=== PATIENT | male | born 1980 | race Caucasian/White ===

== ENCOUNTER 2017-07-22 18:55 | Emergency (ER) | payer OTHER ==
--- NOTE | 2017-07-22 21:14 | ED Physician Documentation ---
PD HPI CHEST PAIN - Stated complaint Stated Complaint: CHEST TIGHTNESS - Chief complaint Chief Complaint: Cardiac - History obtained from History obtained from: Patient - History of Present Illness Timing - onset: Other (36-year-old gentleman with history of anxiety, no other health problems was sitting at work tonight and he felt tachycardic and breathless, now better. He has had episodes like this related to anxiety in the past. There is no associated chest pain, no pedal edema, calf pain, recent travel or cough. No heavy caffeine use. He noted on his Fitbit that he was tachycardic to 120.) Review of Systems Ten Systems: 10 systems reviewed and negative Constitutional: denies: Fever, Chills, Fatigue Throat: denies: Dental pain / toothache, Sore throat Cardiac: reports: Palpitations. denies: Chest pain / pressure, Pedal edema, Calf pain PD PAST MEDICAL HISTORY - Past Medical History Past Medical History: Yes Cardiovascular: None Respiratory: None Endocrine/Autoimmune: None GI: None : Other HEENT: None Psych: Anxiety Musculoskeletal: Other Derm: None - Past Surgical History Past Surgical History: Yes - Present Medications Home Medications: Ambulatory Orders Medication Instructions Recorded Confirmed Alprazolam [Xanax] 0.5 mg PO Q6H PRN #10 tablet 07/22/17 Loratadine [Claritin] 10 mg PO 07/22/17 Sertraline [Zoloft] 07/22/17 - Allergies Allergies/Adverse Reactions: Allergies Allergy/AdvReac Type Severity Reaction Status Date / Time No Known Drug Allergies Allergy Verified 07/22/17 19:08 - Social History Does the pt smoke?: No Smoking Status: Never smoker Does the pt drink ETOH?: Yes Does the pt have substance abuse?: No - Immunizations Immunizations are current?: Yes - POLST Patient has POLST: No PD ED PE NORMAL - Vitals Vital signs reviewed: Yes - General General: Alert and oriented X 3, No acute distress - Cardiac Cardiac: RRR, No murmur - Respiratory Respiratory: No respiratory distress, Clear bilaterally - Abdomen Abdomen: Non tender - Extremities Extremities: No edema, No calf tenderness / cord - Neuro Neuro: Alert and oriented X 3, Normal speech Results - Vitals Vitals: Vital Signs - 24 hr 07/22/17 07/22/17 19:00 20:43 Temperature 36.1 C L Heart Rate 94 80 Respiratory 18 14 Rate Blood Pressure 129/92 H 150/92 H O2 Saturation 96 100 Oxygen O2 Source Room air - EKG (time done) 1900 Rate: Rate (enter#) (100) Rhythm: Sinus tachycardia [place]: Normal Intervals: Normal [place] QRS: Normal Ischemia: Normal ST segments Computer interpretation: Agree with computer PD MEDICAL DECISION MAKING - ED course ED course: 36-year-old gentleman with most likely resolved panic attack, supraventricular tachycardia or A. fib was considered but less likely but follow-up with potential Holter monitoring was advised. Departure - Departure Disposition: Home, Self Care Clinical Impression: Tachycardia Condition: Good Record reviewed to determine appropriate education?: Yes Instructions: ED Chest Pain Atypical Unkn Cause Prescriptions: Alprazolam [Xanax] 0.5 mg PO Q6H PRN #10 tablet PRN Reason: Anxiety Comments: Talk with your doctor about increasing your antidepressants. Also consider Holter monitoring for persistent symptoms. Your blood pressure was elevated today on check into the emergency department. This does not mean that you have hypertension, it is a common phenomenon to come to the emergency department and have elevated blood pressure. I recommend that you see your primary care physician within the week to have it rechecked when you are feeling better.
[2017-07-22 21:23] VITALS: BP 151/92
== END 2017-07-22 21:24 | disposition home or self-care (01) ==
LOC: ED 18:55
DX: R00.0 Tachycardia, unspecified (principal); R03.0 Elevated blood-pressure reading, without diagnosis of hypertension; F41.9 Anxiety disorder, unspecified
CPT/HCPCS: 93005; 99283

== ENCOUNTER 2017-07-27 12:53 | Emergency (ER) | payer OTHER ==
--- NOTE | 2017-07-27 14:49 | ED Physician Documentation ---
PD HPI CHEST PAIN - Stated complaint Stated Complaint: PANIC ATTACK - Chief complaint Chief Complaint: General - History obtained from History obtained from: Patient - History of Present Illness Timing - onset: How many hours ago (2) Timing - onset during: Light activity Timing - duration: Hours (2) Timing - details: Abrupt onset, Now resolved (feeling improved enroute to ED. Still feeling slightly anxious.) Quality: Pressure (and feeling of heart going fast.). No: Aching, Sharp Location: Substernal Radiation: No: Jaw, Neck, Back, Abdominal, Left upper extremity, Right upper extremity, Other Improved by: No: Rest Worsened by: No: Exertion, Inspiration Associated symptoms: Shortness of air, Palpitations (feeling heart rate going fast.) Similar symptoms before: No diagnosis (has had this happen several times without obvious provokation and lasts minutes to hour or so. Setting appt with PMD.) Recently seen: Not recently seen Review of Systems Constitutional: denies: Fever, Chills Nose: denies: Rhinorrhea / runny nose, Congestion Throat: denies: Sore throat, Swollen tonsils Cardiac: reports: Palpitations. denies: Chest pain / pressure, Pedal edema, Calf pain Respiratory: reports: Dyspnea (with heart rate going fast, episodes.). denies: Cough, Wheezing GI: denies: Abdominal Pain, Nausea, Vomiting, Diarrhea : denies: Dysuria, Frequency Skin: denies: Rash, Lesions Neurologic: denies: Generalized weakness, Focal weakness, Numbness, Near syncope Psychiatric: denies: Depressed Endocrine: denies: Polydypsia, Polyuria, Weight loss PD PAST MEDICAL HISTORY - Past Medical History Cardiovascular: None Respiratory: None Endocrine/Autoimmune: None GI: None : Other HEENT: None Psych: Anxiety Musculoskeletal: Other Derm: None - Past Surgical History Past Surgical History: Yes - Present Medications Home Medications: Ambulatory Orders Medication Instructions Recorded Confirmed Alprazolam [Xanax] 0.5 mg PO Q6H PRN #10 tablet 07/22/17 Loratadine [Claritin] 10 mg PO 07/22/17 Sertraline [Zoloft] 07/22/17 Atenolol 25 mg PO DAILY #10 tablet 07/27/17 Lorazepam [Ativan] 1 mg PO BID PRN #15 tablet 07/27/17 - Allergies Allergies/Adverse Reactions: Allergies Allergy/AdvReac Type Severity Reaction Status Date / Time No Known Drug Allergies Allergy Verified 07/22/17 19:08 - Social History Does the pt smoke?: No Smoking Status: Never smoker Does the pt drink ETOH?: Yes Does the pt have substance abuse?: No - Family History Family history: reports: Non contributory. denies: CAD, Sudden - Immunizations Immunizations are current?: Yes - POLST Patient has POLST: No PD ED PE NORMAL - Vitals Vital signs reviewed: Yes - General General: Alert and oriented X 3, No acute distress, Well developed/nourished - HEENT HEENT: Moist mucous membranes, Pharynx benign - Neck Neck: Supple, no meningeal sign, No adenopathy, Thyroid normal, No JVD, No bruit - Cardiac Cardiac: RRR, No murmur - Respiratory Respiratory: Clear bilaterally - Abdomen Abdomen: Soft, Non tender - Male Male : Deferred - Rectal Rectal: Deferred - Back Back: No CVA TTP - Derm Derm: Normal color, Warm and dry, No rash - Extremities Extremities: No tenderness to palpate, Normal ROM s pain, No edema, No calf tenderness / cord - Neuro Neuro: Alert and oriented X 3, No motor deficit, Normal speech Results - Vitals Vitals: Oxygen O2 Source Room air - EKG (time done) 13:15 Rate: Rate (enter#) (92) Rhythm: NSR [place]: Normal Intervals: Normal [place] QRS: Normal Ischemia: Normal ST segments. No: ST elevation c/w ischemia, ST depression Compare to prior EKG: Old EKG unavailable - Labs Labs: Laboratory Tests 07/27/17 07/27/17 07/27/17 15:27 15:27 15:27 WBC 6.9 RBC 4.93 Hgb 13.7 L Hct 42.2 MCV 85.6 MCH 27.9 MCHC 32.6 RDW 13.9 Plt Count 295 MPV 7.1 L Neut # 3.7 Lymph # 2.3 [place] # 0.6 Eos # 0.2 Baso # 0.1 Absolute Nucleated RBC 0.00 Nucleated RBC % 0.0 Sodium 135 Potassium 3.9 Chloride 102 Carbon Dioxide 24 Anion Gap 9.0 BUN 18 Creatinine 0.8 Estimated GFR (MDRD) 109 Glucose 85 Calcium 9.1 Magnesium 2.2 Total Bilirubin 0.3 AST 29 ALT 24 Alkaline Phosphatase 116 C-Reactive Protein < 1.0 B-Natriuretic Peptide 8 Total Protein 7.5 Albumin 4.4 Globulin 3.1 Albumin/Globulin Ratio 1.4 Lipase 31 TSH 07/27/17 15:27 WBC RBC Hgb Hct MCV MCH MCHC RDW Plt Count MPV Neut # Lymph # [place] # Eos # Baso # Absolute Nucleated RBC Nucleated RBC % Sodium Potassium Chloride Carbon Dioxide Anion Gap BUN Creatinine Estimated GFR (MDRD) Glucose Calcium Magnesium Total Bilirubin AST ALT Alkaline Phosphatase C-Reactive Protein B-Natriuretic Peptide Total Protein Albumin Globulin Albumin/Globulin Ratio Lipase TSH 0.97 PD MEDICAL DECISION MAKING - ED course Complexity details: reviewed results, re-evaluated patient (he is most bothered by the heart rate fast at times. Not really feeling panic still per se. Could consider low dose beta maribel to see if helps syptoms. And to have PCP see him in office regarding possible Holter. ), considered differential (consider thyroid, lytes, anemia, intermittent arrhythmia, etc. Basic labs good here. Could have intermittent dysrhythmia, so have PCP consider Holter. ), d/w patient Departure - Departure Disposition: Home, Self Care Clinical Impression: Tachycardia, Panic attack Condition: Stable Record reviewed to determine appropriate education?: Yes Instructions: ED Panic Attack, ED Tachycardia Pat PSVT Follow-Up: Duc Thomson MD [Primary Care Provider] - Prescriptions: Atenolol 25 mg PO DAILY #10 tablet Lorazepam [Ativan] 1 mg PO BID PRN #15 tablet PRN Reason: Anxiety Comments: Your basic blood tests here appear normal. No signs of thyroid or endocrine or electrolyte problems. EKG shows a regular rhythm at this time. I would reinforce the instructions from the previous visit about having her primary care do a recording monitor over a week to see if there are truly abnormal rhythms that occur at times. Otherwise if it is anxiety, would have you continue the Zoloft for now and to you follow-up with your primary care. You can use atenolol daily for the next week or so and this will decrease the adrenaline aspect and the heart rate from going too fast. Stop it if you feeling to lightheaded as it can lower your blood pressure 2. Drink lots of fluids. Use the Xanax or alternatively could change to Lorazepam (Ativan) to see her works better for the anxiety episodes when you get them. Follow-up with your primary care over the next several days, call for an appointment. Discharge Date/Time: 07/27/17 16:30
[2017-07-27] MEDS ORDERED: METOPROLOL SUCCINATE 25 MG TABLET PO STA (15:18)
[2017-07-27] MEDS ORDERED: LORazepam 0.5 MG TABLET PO STA (15:18)
[2017-07-27 15:33] LABS: BASOPHILS # (AUTO) 0.1 10^3/uL (0.0-0.1); BASOPHILS % (AUTO) 1.3 %; EOSINOPHILS # (AUTO) 0.2 10^3/uL (0.0-0.7); EOSINOPHILS % (AUTO) 3.4 %; HGB - HEMOGLOBIN 13.7 g/dL (14.0-18.0); LYMPHOCYTES # (AUTO) 2.3 10^3/uL (1.5-3.5); LYMPHOCYTES % (AUTO) 33.4 %; MEAN CORPUSCULAR HEMOGLOBIN 27.9 pg (27.0-31.0); MEAN CORPUSCULAR HGB CONC 32.6 g/dL (32.0-36.0); MEAN CORPUSCULAR VOLUME 85.6 fL (80.0-94.0); MEAN PLATELET VOLUME 7.1 fL (7.4-11.4); MONOCYTES # (AUTO) 0.6 10^3/uL (0.0-1.0); MONOCYTES % (AUTO) 8.8 %; NEUTROPHILS # (AUTO) 3.7 10^3/uL (1.5-6.6); NEUTROPHILS % (AUTO) 53.1 %; PLT - PLATELET COUNT 295 10^3/uL (130-450); RED BLOOD COUNT 4.93 10^6/uL (4.70-6.10); RED CELL DISTRIBUTION WIDTH 13.9 % (12.0-15.0); WHITE BLOOD COUNT 6.9 x10^3/uL (4.8-10.8)
[2017-07-27 15:48] VITALS: BP 127/85
[2017-07-27 15:53] LABS: ALBUMIN 4.4 g/dL (3.2-5.5); ALBUMIN/GLOBULIN RATIO 1.4 (1.0-2.2); ALKALINE PHOSPHATASE 116 IU/L (42-121); ALT ALANINE AMINOTRANSFERASE 24 IU/L (10-60); AST ASPARTATE AMINOTRANSFERASE 29 IU/L (10-42); BILIRUBIN,TOTAL 0.3 mg/dL (0.2-1.0); BUN - BLOOD UREA NITROGEN 18 mg/dL (6-20); CALCIUM 9.1 mg/dL (8.5-10.3); CARBON DIOXIDE - CO2 24 mmol/L (21-32); CHLORIDE 102 mmol/L (101-111); CREATININE 0.8 mg/dL (0.6-1.2); GFR - MDRD 109 (>89); GLUCOSE 85 mg/dL (70-100); LIPASE 31 U/L (22-51); MAGNESIUM 2.2 mg/dL (1.7-2.8); SODIUM 135 mmol/L (135-145); TOTAL PROTEIN 7.5 g/dL (6.7-8.2)
[2017-07-27 16:00] LABS: CRP - C-REACTIVE PROTEIN < 1.0 mg/dL (0-1.0)
== END 2017-07-27 16:30 | disposition home or self-care (01) ==
LOC: ED 12:53
DX: F41.0 Panic disorder [episodic paroxysmal anxiety] (principal); R00.0 Tachycardia, unspecified
CPT/HCPCS: 36415; 80053; 83690; 83735; 83880; 84443; 85025; 86140; 93005; 99283; 99284; A9270

== ENCOUNTER 2018-02-07 14:22 | Outpatient (CLI) | payer OTHER | END 2018-02-07 14:23 | disposition home or self-care (01) | LOC: SC 14:22 | PROVIDERS: ATTEND Internal Medicine Pulmonary Disease | DX: G47.30 Sleep apnea, unspecified (principal); G47.10 Hypersomnia, unspecified; R06.83 Snoring; G47.8 Other sleep disorders | CPT/HCPCS: 99203; 99212 ==

== ENCOUNTER 2018-03-02 20:40 | Outpatient (CLI) | payer OTHER | END 2018-03-02 20:41 | disposition home or self-care (01) | LOC: SC 20:40 | PROVIDERS: ATTEND Internal Medicine Pulmonary Disease | DX: G47.33 Obstructive sleep apnea (adult) (pediatric) (principal); G47.61 Periodic limb movement disorder | CPT/HCPCS: 95810 ==

== ENCOUNTER 2018-04-06 14:38 | Outpatient (CLI) | payer OTHER | END 2018-04-06 14:39 | disposition home or self-care (01) | LOC: SC 14:38 | PROVIDERS: ATTEND Nurse Practitioner Family | DX: G47.33 Obstructive sleep apnea (adult) (pediatric) (principal); G47.61 Periodic limb movement disorder | CPT/HCPCS: 99212; 99215 ==

== ENCOUNTER 2018-09-07 10:54 | Emergency (ER) | payer OTHER ==
--- NOTE | 2018-09-07 11:41 | XRAY Report ---
Reason: cough Procedure Date: 09/07/2018 Accession Number: [id number] / [id number] Procedure: XR - Chest 2 View X-Ray CPT Code: 78983 FULL RESULT: EXAM: CHEST RADIOGRAPHY EXAM DATE: 09/07/2018 11:28 AM. CLINICAL HISTORY: Cough. COMPARISON: [facility] 03/11/2016 2:53 PM. TECHNIQUE: 2 views. FINDINGS: Lungs/Pleura: No focal opacities evident. No pleural effusion. No pneumothorax. Normal volumes. Mediastinum: Heart and mediastinal contours are unremarkable. Other: None. IMPRESSION: No acute cardiopulmonary abnormality. RADIA
[2018-09-07] MEDS ORDERED: MELOXICAM 7.5 MG TABLET PO STA (11:56)
[2018-09-07] MEDS ORDERED: CHERRY SYRUP 10 ML UDC PO ONE (11:56)
[2018-09-07] MEDS ORDERED: DEXAMETHASONE 10 MG/ML VIAL PO STA (11:56)
[2018-09-07] MEDS ORDERED: ALBUTEROL NEB 2.5 MG/3 ML INH STA (11:56)
--- NOTE | 2018-09-07 11:58 | ED Physician Documentation ---
History of Present Illness - Stated complaint Stated Complaint: HURTS TO TAKE A BREATH - Chief complaint Chief Complaint: Resp - History obtained from History obtained from: Patient - History of Present Illness Timing: Today Pain level max: 7 Pain level now: 6 - Additonal information Additional information: 38-year-old male presents to the emergency department stating that it hurts to breathe today. Similar symptoms approximately 10 weeks ago when he was in [place], nebulizer treatment. No fevers. No cough. No recent surgery. No leg swelling. Review of Systems Constitutional: denies: Fever, Chills Ears: denies: Ear pain Nose: denies: Rhinorrhea / runny nose, Congestion Throat: denies: Sore throat Cardiac: denies: Chest pain / pressure Respiratory: denies: Wheezing GI: denies: Nausea, Vomiting, Diarrhea Skin: denies: Rash Musculoskeletal: denies: Neck pain, Extremity pain, Extremity swelling PD PAST MEDICAL HISTORY - Past Medical History Cardiovascular: None Respiratory: None Endocrine/Autoimmune: None GI: None : Other HEENT: None Psych: Anxiety Musculoskeletal: Other Derm: None - Past Surgical History Past Surgical History: Yes - Present Medications Home Medications: Ambulatory Orders Medication Instructions Recorded Confirmed Loratadine [Claritin] 10 mg PO DAILY 07/22/17 09/07/18 Dextroamphetamine/Amphetamine 10 mg PO DAILY 09/07/18 09/07/18 [Adderall 10 mg Tablet] Meloxicam [Mobic] 15 mg PO DAILY PRN #20 tablet 09/07/18 - Allergies Allergies/Adverse Reactions: Allergies Allergy/AdvReac Type Severity Reaction Status Date / Time No Known Drug Allergies Allergy Verified 09/07/18 11:11 - Social History Does the pt smoke?: No Smoking Status: Never smoker Does the pt drink ETOH?: Yes Does the pt have substance abuse?: No - Immunizations Immunizations are current?: Yes - POLST Patient has POLST: No PD ED PE NORMAL - Vitals Vital signs reviewed: Yes - General General: Alert and oriented X 3, No acute distress, Well developed/nourished - HEENT HEENT: PERRL, Moist mucous membranes - Neck Neck: Supple, no meningeal sign - Cardiac Cardiac: RRR, No murmur, No rub, Strong equal pulses - Respiratory Respiratory: No respiratory distress, Clear bilaterally - Abdomen Abdomen: Soft, Non tender, Non distended - Derm Derm: Warm and dry - Extremities Extremities: No edema, No calf tenderness / cord - Neuro Neuro: Alert and oriented X 3 - Psych Psych: Normal mood, Normal affect Results - Vitals Vitals: Vital Signs - 24 hr 09/07/18 09/07/18 09/07/18 10:58 11:06 12:31 Temperature 36.8 C 98.1 C H Heart Rate 108 H 105 H 100 Respiratory 16 14 Rate Blood Pressure 139/94 H 135/105 H O2 Saturation 99 96 09/07/18 13:26 Temperature 36.9 C Heart Rate 119 H Respiratory 12 Rate Blood Pressure 135/86 H O2 Saturation 98 Oxygen O2 Source Room air - Rads (name of study) cxr Radiology: Prelim report reviewed, EMP read contemporaneously, See rad report (No acute abnormality) PD MEDICAL DECISION MAKING - ED course Complexity details: reviewed results, re-evaluated patient, considered differential, d/w patient ED course: 38-year-old male with what appears to be pleurisy today. Has a history of tachycardia. No risk factors for pulmonary embolism. Negative chest x-ray. Had improved with albuterol in the past but no change this time. Will place on NSAIDs and follow-up with his doctor. Patient counseled regarding signs and symptoms for which I believe and urgent re-evaluation would be necessary. Patient with good understanding of and agreement to plan and is comfortable going home at this time This document was made in part using voice recognition software. While efforts are made to proofread this document, sound alike and grammatical errors may occur. Departure - Departure Disposition: 01 Home, Self Care Clinical Impression: Pleurisy Condition: Good Instructions: ED Chest Pain Pleurisy Follow-Up: Helena Ludwig MD [Primary Care Provider] - Prescriptions: Meloxicam [Mobic] 15 mg PO DAILY PRN #20 tablet PRN Reason: pain Comments: Return if you worsen. Follow-up with your doctor for further evaluation and care. This should improve over the next few days to a week. Discharge Date/Time: 09/07/18 13:39
[2018-09-07 13:27] VITALS: BP 135/86
== END 2018-09-07 13:39 | disposition home or self-care (01) ==
LOC: ED 10:54
DX: R09.1 Pleurisy (principal)
CPT/HCPCS: 71046; 94640; 99283; A9270

== ENCOUNTER 2018-10-06 15:31 | Emergency (ER) | payer OTHER ==
[2018-10-06 15:38] VITALS: BP 131/87
[2018-10-06] MEDS ORDERED: MELOXICAM 7.5 MG TABLET PO STA (15:50)
--- NOTE | 2018-10-06 15:53 | ED Physician Documentation ---
PD HPI CHEST PAIN - Stated complaint Stated Complaint: SOA - Chief complaint Chief Complaint: Resp - History obtained from History obtained from: Patient - History of Present Illness Timing - onset: Today (About 3 weeks ago had pleurisy, it bothered him for 10 days and then went away. The pain recurred this morning with upper bilateral chest pain especially with deep breathing. Is no cough. He does feel short of breath at rest. Denies pedal edema or calf pain. It is slightly better when he is upright and worse supine.) Review of Systems Ten Systems: 10 systems reviewed and negative Constitutional: denies: Fever, Chills, Fatigue Cardiac: denies: Palpitations, Pedal edema, Calf pain Respiratory: denies: Cough, Hemoptysis, Wheezing PD PAST MEDICAL HISTORY - Past Medical History Cardiovascular: None Respiratory: None Neuro: None Endocrine/Autoimmune: None GI: None : Other HEENT: None Psych: Anxiety Musculoskeletal: Other Derm: None - Past Surgical History Past Surgical History: Yes Ortho: Other - Present Medications Home Medications: Ambulatory Orders Medication Instructions Recorded Confirmed Loratadine [Claritin] 10 mg PO DAILY 07/22/17 09/07/18 Dextroamphetamine/Amphetamine 10 mg PO DAILY 09/07/18 09/07/18 [Adderall 10 mg Tablet] Meloxicam [Mobic] 7.5 mg PO BID PRN #20 tablet 10/06/18 - Allergies Allergies/Adverse Reactions: Allergies Allergy/AdvReac Type Severity Reaction Status Date / Time No Known Drug Allergies Allergy Verified 10/06/18 15:38 - Social History Does the pt smoke?: No Smoking Status: Never smoker Does the pt drink ETOH?: Yes Does the pt have substance abuse?: No - Immunizations Immunizations are current?: Yes - POLST Patient has POLST: No PD ED PE NORMAL - Vitals Vital signs reviewed: Yes - General General: Alert and oriented X 3, No acute distress - HEENT HEENT: PERRL, EOMI - Neck Neck: Supple, no meningeal sign, No bony TTP - Cardiac Cardiac: RRR, No murmur - Respiratory Respiratory: No respiratory distress, Clear bilaterally - Abdomen Abdomen: Non tender - Extremities Extremities: No edema, No calf tenderness / cord - Neuro Neuro: Alert and oriented X 3, Normal speech Results - Vitals Vitals: Vital Signs - 24 hr 05/23/19 15:36 Temperature 36.4 C L Heart Rate 108 H Respiratory 22 Rate Blood Pressure 131/87 H O2 Saturation 97 Oxygen O2 Source Room air - EKG (time done) 1554 Rate: Rate (enter#) (102) Rhythm: Sinus tachycardia [place]: Normal Intervals: Normal [place] QRS: Normal Ischemia: Normal ST segments Computer interpretation: Agree with computer - Labs Labs: Laboratory Tests 10/06/18 10/06/18 15:59 15:59 D-Dimer < 200.0 L Troponin I < 0.04 Departure - Departure Disposition: 01 Home, Self Care Clinical Impression: Pleurisy Condition: Good Record reviewed to determine appropriate education?: Yes Instructions: ED Chest Pain Pleurisy Prescriptions: Meloxicam [Mobic] 7.5 mg PO BID PRN #20 tablet PRN Reason: Pain Comments: Call your doctor to arrange a follow-up appointment, make the next available appointment. In the interim, return anytime if worse or if new symptoms develop.
== END 2018-10-06 16:35 | disposition home or self-care (01) ==
LOC: ED 15:31
DX: R09.1 Pleurisy (principal); R00.0 Tachycardia, unspecified
CPT/HCPCS: 36415; 84484; 85379; 93005; 99283; A9270